=== PATIENT | female | born 1965 | race Caucasian/White ===

== ENCOUNTER 2022-07-17 11:51 | Outpatient (CLI) | payer OTHER, SELFPAY ==
--- NOTE | 2022-07-17 12:00 | CRLHL7_ITS ---
For Patients: As a result of the Century Cures Act, medical imaging exams and procedure reports are released immediately into your electronic medical record. You may view this report before your referring provider. If you have questions, please contact your health care provider. INDICATION: 57-year-old female. Malignant melanoma right lower extremity. Injection for sentinel lymph node scintigraphy. The on-site staff obtained informed consent. Sterile technique was utilized. 0.98 mCi of Tc-99m filtered Sulfur Colloid was injected within an intradermal location posterior to the right knee about the lesion in question. No immediate complications documented. Subsequent imaging demonstrates a chain of multiple small foci of activity within the right inguinal region compatible with multiple lymph nodes. IMPRESSION: Technically successful injection for sentinel lymph node scintigraphy of a malignant melanoma of the right lower extremity. Dictated by Selvin Garcia MD @ 07/17/2022 3:41:20 PM (Electronically Signed)
== END 2022-07-17 11:52 | disposition home or self-care (01) ==
LOC: NM 11:52
PROVIDERS: PCP Family Medicine; Visit Provider Surgery
DX: C43.9 Malignant melanoma of skin, unspecified (principal)
CPT/HCPCS: 78195; A9541

== ENCOUNTER 2022-08-15 10:57 | Outpatient (CLI) | payer OTHER, SELFPAY | END 2022-08-15 10:58 | disposition home or self-care (01) | LOC: WOUND 10:57 | PROVIDERS: PCP Family Medicine; Visit Provider Surgery | DX: T81.31XA Disruption of external operation (surgical) wound, not elsewhere classified, initial encounter (principal); C43.71 Malignant melanoma of right lower limb, including hip | CPT/HCPCS: 99212 ==

== ENCOUNTER 2022-08-18 13:57 | Outpatient (CLI) | payer OTHER, SELFPAY | END 2022-08-18 13:58 | disposition home or self-care (01) | LOC: WOUND 13:57 | PROVIDERS: PCP Family Medicine; Visit Provider Surgery | DX: T81.31XA Disruption of external operation (surgical) wound, not elsewhere classified, initial encounter (principal); C43.71 Malignant melanoma of right lower limb, including hip | CPT/HCPCS: 99212 ==

== ENCOUNTER 2022-08-20 08:11 | Outpatient (CLI) | payer OTHER, SELFPAY | END 2022-08-20 08:12 | disposition home or self-care (01) | LOC: WOUND 08:11 | PROVIDERS: PCP Family Medicine; Visit Provider Surgery | DX: T81.31XA Disruption of external operation (surgical) wound, not elsewhere classified, initial encounter (principal); C43.71 Malignant melanoma of right lower limb, including hip | CPT/HCPCS: 97597 ==

== ENCOUNTER 2022-08-22 09:16 | Outpatient (CLI) | payer OTHER, SELFPAY | END 2022-08-22 09:17 | disposition home or self-care (01) | PROVIDERS: PCP Family Medicine; Visit Provider Surgery | DX: T81.31XA Disruption of external operation (surgical) wound, not elsewhere classified, initial encounter (principal); C43.71 Malignant melanoma of right lower limb, including hip | CPT/HCPCS: 99212 ==

== ENCOUNTER 2022-08-25 08:28 | Outpatient (CLI) | payer OTHER, SELFPAY | END 2022-08-25 08:29 | disposition home or self-care (01) | LOC: WOUND 08:28 | PROVIDERS: PCP Family Medicine; Visit Provider Surgery | DX: T81.31XA Disruption of external operation (surgical) wound, not elsewhere classified, initial encounter (principal); C43.71 Malignant melanoma of right lower limb, including hip | CPT/HCPCS: 99212 ==

== ENCOUNTER 2022-08-26 14:27 | Outpatient (CLI) | payer OTHER, SELFPAY ==
--- NOTE | 2022-08-26 14:40 | CRLHL7_ITS ---
For Patients: As a result of the Century Cures Act, medical imaging exams and procedure reports are released immediately into your electronic medical record. You may view this report before your referring provider. If you have questions, please contact your health care provider. BILATERAL SCREENING MAMMOGRAM WITH COMPUTER-AIDED DETECTION AND TOMOSYNTHESIS TECHNIQUE: CC, MLO and Implant displaced views were obtained. These mammographic images have been obtained using full-field digital technique. These mammographic images were interpreted with the benefit of computer-aided detection. Breast Tomosynthesis was used in this interpretation. COMPARISON FILM: LEFT diag 07/15/21, 07/08/21, 09/27/19. FINDINGS: There are scattered areas of fibroglandular density IMPRESSION: There is no radiographic evidence for malignancy. ASSESSMENT: BI-RADS Category 2: Benign RECOMMENDATION: Routine screening mammogram in 1 year. A lay language report of this examination will be provided to the patient. Vinod Stewart M.D. Diagnostic Radiologist [email or web address] YEYO/Dictated by: Vinod Stewart MD @ 08/27/2022 12:42:00 PM (Electronically Signed)
== END 2022-08-26 14:28 | disposition home or self-care (01) ==
LOC: MAMMO 14:27
PROVIDERS: PCP Family Medicine; Visit Provider Family Medicine
DX: Z12.31 Encounter for screening mammogram for malignant neoplasm of breast (principal)
CPT/HCPCS: 77063; 77067

== ENCOUNTER 2022-08-27 08:51 | Outpatient (CLI) | payer OTHER, SELFPAY | END 2022-08-27 08:52 | disposition home or self-care (01) | LOC: WOUND 08:51 | PROVIDERS: PCP Family Medicine; Visit Provider Surgery | DX: T81.31XA Disruption of external operation (surgical) wound, not elsewhere classified, initial encounter (principal); C43.71 Malignant melanoma of right lower limb, including hip | CPT/HCPCS: 97597 ==

== ENCOUNTER 2022-09-01 09:11 | Outpatient (CLI) | payer OTHER, SELFPAY | END 2022-09-01 09:12 | disposition home or self-care (01) | LOC: WOUND 09:11 | PROVIDERS: PCP Family Medicine; Visit Provider Surgery | DX: T81.31XA Disruption of external operation (surgical) wound, not elsewhere classified, initial encounter (principal); C43.71 Malignant melanoma of right lower limb, including hip | CPT/HCPCS: 99212 ==

== ENCOUNTER 2022-09-04 09:25 | Outpatient (CLI) | payer OTHER, SELFPAY | END 2022-09-04 09:26 | disposition home or self-care (01) | LOC: WOUND 09:25 | PROVIDERS: PCP Family Medicine; Visit Provider Family Medicine | DX: T81.31XA Disruption of external operation (surgical) wound, not elsewhere classified, initial encounter (principal); C43.71 Malignant melanoma of right lower limb, including hip | CPT/HCPCS: 99213 ==

== ENCOUNTER 2022-09-08 08:12 | Outpatient (CLI) | payer OTHER, SELFPAY | END 2022-09-08 08:13 | disposition home or self-care (01) | LOC: WOUND 08:12 | PROVIDERS: PCP Family Medicine; Visit Provider Family Medicine | DX: T81.31XD Disruption of external operation (surgical) wound, not elsewhere classified, subsequent encounter (principal); C43.71 Malignant melanoma of right lower limb, including hip | CPT/HCPCS: 99212 ==

== ENCOUNTER 2022-09-11 07:54 | Outpatient (CLI) | payer OTHER, SELFPAY | END 2022-09-11 07:55 | disposition home or self-care (01) | LOC: WOUND 07:54 | PROVIDERS: PCP Family Medicine; Visit Provider Family Medicine | DX: T81.31XA Disruption of external operation (surgical) wound, not elsewhere classified, initial encounter (principal); C43.71 Malignant melanoma of right lower limb, including hip | CPT/HCPCS: 99212; A9270; J3490 ==

== ENCOUNTER 2022-09-17 07:57 | Outpatient (CLI) | payer OTHER, SELFPAY | END 2022-09-17 07:58 | disposition home or self-care (01) | PROVIDERS: PCP Family Medicine; Visit Provider Surgery | DX: T81.31XA Disruption of external operation (surgical) wound, not elsewhere classified, initial encounter (principal); C43.71 Malignant melanoma of right lower limb, including hip | CPT/HCPCS: 97597 ==

== ENCOUNTER 2022-09-24 08:03 | Outpatient (CLI) | payer OTHER, SELFPAY | END 2022-09-24 08:04 | disposition home or self-care (01) | LOC: WOUND 08:03 | PROVIDERS: PCP Family Medicine; Visit Provider Surgery | DX: T81.31XA Disruption of external operation (surgical) wound, not elsewhere classified, initial encounter (principal); C43.71 Malignant melanoma of right lower limb, including hip | CPT/HCPCS: 99212 ==

== ENCOUNTER 2022-10-08 08:04 | Outpatient (CLI) | payer OTHER, SELFPAY | END 2022-10-08 08:05 | disposition home or self-care (01) | LOC: WOUND 08:04 | PROVIDERS: PCP Family Medicine; Visit Provider Surgery | DX: T81.31XA Disruption of external operation (surgical) wound, not elsewhere classified, initial encounter (principal) | CPT/HCPCS: 99212 ==

== ENCOUNTER 2022-11-21 07:54 | Outpatient (CLI) | payer OTHER, SELFPAY | END 2022-11-21 07:55 | disposition home or self-care (01) | LOC: NFLDREF 11-22 13:03 | PROVIDERS: PCP Family Medicine; Referring Provider Family Medicine; Visit Provider Family Medicine | DX: E03.9 Hypothyroidism, unspecified (principal) | CPT/HCPCS: 84439; 84443; 84481 ==

== ENCOUNTER 2022-12-15 14:01 | Outpatient (CLI) | payer OTHER, SELFPAY ==
--- NOTE | 2022-12-15 14:30 | CRLHL7_ITS ---
For Patients: As a result of the Century Cures Act, medical imaging exams and procedure reports are released immediately into your electronic medical record. You may view this report before your referring provider. If you have questions, please contact your health care provider. INDICATION: Hypothyroidism. TECHNIQUE: Brain MRI with contrast. Pituitary protocol. The following sequences were obtained: DWI and ADC mapping sequences. Axial FLAIR and T2 weighted sequences. Coronal T2 weighted sequence of the sellar region. Coronal and sagittal thin-section T1 weighted pre-contrast and post-contrast sequences of the sellar region. 3D T1 weighted sequence of the whole brain. 10 cc of Dotarem gadolinium based intravenous contrast agent was used. COMPARISON: Brain MRI from 08/25/2022. FINDINGS: The pituitary gland is normal in size and appearance. The neurohypophysis demonstrates normal T1 shortening. Pituitary infundibulum is midline and normal in appearance. The cavernous sinuses and Meckel`s caves are normal in appearance. The suprasellar cistern, hypothalamus and optic chiasm are all normal in appearance. All the major intracranial vascular structures demonstrate normal flow-related signal voids and intraluminal enhancement. Sphenoid sinus demonstrates subsellar pneumatization. No acute infarct or hemorrhage. A few small FLAIR hyperintensities within the supratentorial white matter, typical for chronic microvascular ischemic change. No mass effect or herniation. No hydrocephalus or extra-axial collections. Posterior fossa is normal. All the major intracranial vascular structures demonstrate normal flow-related signal. The orbital contents are normal. No calvarial or skull base marrow signal abnormality. Complete opacification of the right frontal sinus by retention cyst or polyp. Moderate ethmoid air cell mucosal thickening complete opacification of the left-sided posterior ethmoid air cells by pooled secretions. Bilateral sphenoid sinus dependent pooled secretions. Mild polypoid maxillary sinus mucosal thickening. No extracranial soft tissue findings. IMPRESSION: 1. No focal lesion involving the pituitary gland, infundibulum or parasellar structures. 2. No mass or pathologic enhancement elsewhere within the brain. 3. No acute ischemia. 4. Mild chronic microvascular ischemic change. Dictated by Kevin Leger MD @ 12/15/2022 4:00:52 PM (Electronically Signed)
== END 2022-12-15 14:02 | disposition home or self-care (01) ==
LOC: MRI 14:02
PROVIDERS: PCP Family Medicine; Visit Provider Internal Medicine Hematology & Oncology
DX: E03.9 Hypothyroidism, unspecified (principal); I67.82 Cerebral ischemia; C43.9 Malignant melanoma of skin, unspecified
CPT/HCPCS: 70553; A9575

== ENCOUNTER 2022-12-17 13:30 | Outpatient (RCR) | payer OTHER, SELFPAY ==
--- NOTE | 2022-09-09 11:13 | ONC.NURNOTE ---
Optivo Prior auth info: Contact at [facility] is [place] [phone] ext [phone] After 1st dose Optivo will be need to be shipped from [facility] to [facility] Next dose delivery date set for 10/02/22- C#2 Optivo due 10/09/22 [facility] will call the pharmacy at [phone] to confirm delivery date Order for Optivo will need to faxed or called to [facility] fax [phone]
== END 2023-04-16 23:59 | disposition home or self-care (01) ==
PROVIDERS: PCP Family Medicine; Referring Provider Family Medicine; Visit Provider Surgery
DX: R59.0 Localized enlarged lymph nodes (principal); Z51.89 Encounter for other specified aftercare
CPT/HCPCS: 97110; 97140; 97162; 97165; 97530; 97535

== ENCOUNTER 2023-01-08 07:55 | Outpatient (CLI) | payer OTHER, SELFPAY | END 2023-01-08 07:56 | disposition home or self-care (01) | LOC: WOUND 07:55 | PROVIDERS: PCP Family Medicine; Visit Provider Nurse Practitioner Family | DX: L91.0 Hypertrophic scar (principal); Z85.820 Personal history of malignant melanoma of skin | CPT/HCPCS: 99213 ==

== ENCOUNTER 2023-01-29 07:55 | Outpatient (CLI) | payer OTHER, SELFPAY | END 2023-01-29 07:56 | disposition home or self-care (01) | LOC: WOUND 07:55 | PROVIDERS: PCP Family Medicine; Visit Provider Nurse Practitioner Family | DX: L91.0 Hypertrophic scar (principal); Z85.820 Personal history of malignant melanoma of skin | CPT/HCPCS: 99212 ==

== ENCOUNTER 2023-02-04 15:00 | Outpatient (RCR) | payer OTHER, SELFPAY ==
--- NOTE | 2022-09-03 12:57 | URNOTE ---
Request received for authorization for Nivolumab 480mg ([id number]). Prior authorization is approved for 1 dose from 09/03/22 to 10/10/22. A specialty pharmacy is required and [facility] will be contacting prior to expiration of this approval for arrangements for this medication. [facility] contact for concerns can be reached at [phone] if needed.
[2022-09-10 09:21] LABS: Basophils Absolute Auto 0.03 K/uL (0.00-0.30); Basophils Percent Auto 0.6 % (0.0-3.0); Eosinophils Absolute Auto 0.16 K/uL (0.00-0.50); Eosinophils Percent Auto 3.4 % (0.0-7.0); Hematocrit 41.9 % (33.0-51.0); Hemoglobin* 13.7 gm/dL (12.0-16.0); Lymphocytes Absolute Auto 1.74 K/uL (0.90-2.90); Lymphocytes Percent Auto 36.7 % (20-44); Mean Corpuscular HGB Conc 33 gm/dL (32-36); Mean Corpuscular Hemoglobin 31 pg (26-34); Mean Corpuscular Volume 96 fL (80-100); Monocytes Percent Auto 8.2 % (0.0-11.0); Neutrophils Absolute Auto 2.42 K/uL (1.7-7.0); Neutrophils Percent Auto 51.1 % (42.0-72.0); Platelet Count* 115 K/uL (140-440); RDW Coefficient of Variation % 12.5 % (11.5-15.5); Red Blood Count 4.38 m/uL (4.00-5.20); White Blood Count* 4.74 K/uL (4.50-11.00)
[2022-09-10 09:30] LABS: Slide Review Reflex No
[2022-09-10 10:19] LABS: Thyroid Stimulating Hormone* 0.339 uIU/mL (0.270-4.20)
[2022-09-10 10:42] LABS: Sodium* 138 mmol/L (135-149)
[2022-09-10 10:43] LABS: Alanine Aminotransferase* 20 U/L (4-35); Albumin* 4.4 g/dL (3.3-5.0); Aspartate Amino Transferase* 27 U/L (12-35); Bilirubin Total* 0.4 mg/dL (0.1-1.5); Blood Urea Nitrogen* 16 mg/dL (7-30); Calcium* 9.2 mg/dL (8.4-10.6); Carbon Dioxide* 27 mmol/L (20-32); Chloride* 104 mmol/L (96-114); Creatinine* 0.7 mg/dL (0.5-1.5); Estimated Glomerular Filt Rate 100 ml/min; Glucose* 97 mg/dL (60-115); Potassium* 4.1 mmol/L (3.6-5.1); Total Protein* 7.3 g/dL (6.0-8.3)
[2022-09-10 10:44] LABS: Alkaline Phosphatase* 65 U/L (40-150)
--- NOTE | 2022-09-10 11:35 | ONC.NURNOTE ---
PSDS +8 patient expresses concerns about the potential for immunotherapy toxicities and if immunotherapy risks will be worth the benefits Kelly Wiggins and this internal communications writer > 1 hr discussing concerns and written information about optivo possible side effects and management
--- NOTE | 2022-09-10 11:39 | ONC.NURNOTE ---
New start Optivo teaching today reviewed reportable side effects, after hours management, self care at home, treatment schedule reviewed new treatment binder handouts questions addressed -Padma has expressed concerns about risks associated with intermission coordinator implications of immunotherapy especially pneumonitis handouts provided , per Padma's request with the frequency of pneumonitis, skin rash, diarrhea, thyroid changes- reviewed with patient -Padma questions-what is the expected outcome if she does not take the immunotherapy- this is not known, goal of treatment reviewed with Padma -Padma requested to move treatment start date to next week -follow up provider appt offered prior to start of treatment- Padma will let us know if she decides to see provider again -plan to start thursday09/15/22 SATISH and treatment consents reviewed and signed Kelly Wiggins APRN/BONE GRINDER- was present for a portion of today's conversation addressing possible side effects and treatment goals greater than 1 hour spent addressing questions and reviewing above information
[2022-09-11 18:03] LABS: Cortisol, Serum 15.4 ug/dL
[2022-09-17 14:20] VITALS: BP 129/77; PULSE 62; RESP 18; TEMP 37.1; O2SAT 99
[2022-09-17] MEDS: NIVOLUMAB 480 MG, TUBING PRIMARY 1 EACH, In-line 0.2 micron filter set 1 EACH in 0.9 % ... 148 MG IVPB (15:04)
--- NOTE | 2022-09-19 09:02 | PC.NURSE ---
Pt requested AM doctor appt and PM infusion with her next cycle to accommodate her work schedule.
[2022-10-10 07:57] LABS: Basophils Absolute Auto 0.05 K/uL (0.00-0.30); Eosinophils Absolute Auto 0.28 K/uL (0.00-0.50); Eosinophils Percent Auto 5.6 % (0.0-7.0); Hematocrit 42.6 % (33.0-51.0); Hemoglobin* 13.9 gm/dL (12.0-16.0); Immature Granulocytes Abs Auto 0.01 K/uL (0.00-0.30); Immature Granulocytes Pct Auto 0.2 %; Lymphocytes Absolute Auto 1.63 K/uL (0.90-2.90); Lymphocytes Percent Auto 32.5 % (20-44); Mean Corpuscular HGB Conc 33 gm/dL (32-36); Mean Corpuscular Hemoglobin 31 pg (26-34); Mean Corpuscular Volume 96 fL (80-100); Monocytes Percent Auto 8.2 % (0.0-11.0); Neutrophils Absolute Auto 2.63 K/uL (1.7-7.0); Neutrophils Percent Auto 52.5 % (42.0-72.0); Platelet Count* 84 K/uL (140-440); RDW Coefficient of Variation % 12.8 % (11.5-15.5); Red Blood Count 4.42 m/uL (4.00-5.20); White Blood Count* 5.01 K/uL (4.50-11.00)
[2022-10-10 08:10] LABS: Albumin* 4.4 g/dL (3.3-5.0); Chloride* 103 mmol/L (96-114); Sodium* 136 mmol/L (135-149)
[2022-10-10 08:11] LABS: Potassium* 4.4 mmol/L (3.6-5.1)
[2022-10-10 08:13] LABS: Alanine Aminotransferase* 20 U/L (4-35); Alkaline Phosphatase* 56 U/L (40-150); Aspartate Amino Transferase* 26 U/L (12-35); Bilirubin Total* 0.6 mg/dL (0.1-1.5); Blood Urea Nitrogen* 19 mg/dL (7-30); Carbon Dioxide* 29 mmol/L (20-32); Creatinine* 0.9 mg/dL (0.5-1.5); Estimated Glomerular Filt Rate 74 ml/min; Glucose* 135 mg/dL (60-115); Slide Review Reflex No; Total Protein* 7.2 g/dL (6.0-8.3)
[2022-10-10 08:14] LABS: Calcium* 9.3 mg/dL (8.4-10.6)
[2022-10-10 09:05] LABS: Thyroid Stimulating Hormone* < 0.015 uIU/mL (0.270-4.20)
[2022-10-11 12:13] LABS: Cortisol, Serum 12.7 ug/dL
[2022-10-14 12:55] VITALS: BP 117/59; PULSE 73; RESP 16; TEMP 36.7; O2SAT 97
[2022-10-14] MEDS: NIVOLUMAB 480 MG, TUBING PRIMARY 1 EACH, In-line 0.2 micron filter set 1 EACH in 0.9 % ... 148 MG IV (13:11)
[2022-10-14] MEDS: 0.9 % SODIUM CHLORIDE 250 ml IV (13:12)
[2022-10-14] MEDS: SODIUM CHLORIDE 0.9 % (FLUSH) 10 ML SYRINGE IVF (13:12)
[2022-10-24 08:14] LABS: Basophils Absolute Auto 0.08 K/uL (0.00-0.30); Basophils Percent Auto 1.8 % (0.0-3.0); Eosinophils Absolute Auto 0.29 K/uL (0.00-0.50); Eosinophils Percent Auto 6.4 % (0.0-7.0); Hematocrit 41.7 % (33.0-51.0); Hemoglobin* 13.5 gm/dL (12.0-16.0); Immature Granulocytes Abs Auto 0.01 K/uL (0.00-0.30); Immature Granulocytes Pct Auto 0.2 %; Lymphocytes Absolute Auto 1.39 K/uL (0.90-2.90); Lymphocytes Percent Auto 30.6 % (20-44); Mean Corpuscular HGB Conc 32 gm/dL (32-36); Mean Corpuscular Hemoglobin 32 pg (26-34); Mean Corpuscular Volume 97 fL (80-100); Monocytes Percent Auto 7.9 % (0.0-11.0); Neutrophils Absolute Auto 2.41 K/uL (1.7-7.0); Neutrophils Percent Auto 53.1 % (42.0-72.0); Platelet Count* 101 K/uL (140-440); RDW Coefficient of Variation % 12.6 % (11.5-15.5); Red Blood Count 4.29 m/uL (4.00-5.20); White Blood Count* 4.54 K/uL (4.50-11.00)
[2022-10-24 08:19] LABS: Slide Review Reflex No
[2022-10-24 08:50] LABS: Free T4 Free Thyroxine* 0.88 ng/dL (0.70-1.85)
[2022-10-25 13:55] LABS: Free T3 3.2 pg/mL (2.5-4.3)
[2022-11-11 08:17] LABS: Basophils Percent Auto 1.9 % (0.0-3.0); Eosinophils Percent Auto 4.4 % (0.0-7.0); Hematocrit 42.6 % (33.0-51.0); Hemoglobin* 13.7 gm/dL (12.0-16.0); Lymphocytes Percent Auto 36.7 % (20-44); Mean Corpuscular HGB Conc 32 gm/dL (32-36); Mean Corpuscular Hemoglobin 31 pg (26-34); Mean Corpuscular Volume 97 fL (80-100); Monocytes Percent Auto 7.9 % (0.0-11.0); Neutrophils Percent Auto 49.1 % (42.0-72.0); Platelet Count* 106 K/uL (140-440); RDW Coefficient of Variation % 12.2 % (11.5-15.5); Red Blood Count 4.39 m/uL (4.00-5.20); White Blood Count* 4.28 K/uL (4.50-11.00)
[2022-11-11 08:23] LABS: Slide Review Reflex No
[2022-11-11 08:39] LABS: Albumin* 4.4 g/dL (3.3-5.0); Chloride* 103 mmol/L (96-114); Sodium* 137 mmol/L (135-149)
[2022-11-11 08:41] LABS: Bilirubin Total* 0.5 mg/dL (0.1-1.5); Creatinine* 0.9 mg/dL (0.5-1.5); Est. Creatinine Clearance* 56.63; Estimated Glomerular Filt Rate 74 ml/min
[2022-11-11 08:42] LABS: Alanine Aminotransferase* 21 U/L (4-35); Alkaline Phosphatase* 66 U/L (40-150); Anion Gap 8 mEq/L (7-15); Aspartate Amino Transferase* 27 U/L (12-35); Blood Urea Nitrogen* 22 mg/dL (7-30); Calcium* 9.2 mg/dL (8.4-10.6); Carbon Dioxide* 26 mmol/L (20-32); Glucose* 68 mg/dL (60-115); Total Protein* 7.3 g/dL (6.0-8.3)
[2022-11-11 09:34] LABS: Thyroid Stimulating Hormone* 0.043 uIU/mL (0.270-4.20)
[2022-11-11 15:01] VITALS: BP 108/57; PULSE 66; RESP 16; TEMP 36.5; O2SAT 97
[2022-11-11] MEDS: NIVOLUMAB 480 MG, TUBING PRIMARY 1 EACH, In-line 0.2 micron filter set 1 EACH in 0.9 % ... 296 MG IV (15:43)
--- NOTE | 2022-11-11 18:21 | ONC.NURNOTE ---
Pt had Opdivo infusion today. She notes that over the last few months or so, she has some vision changes with up close things. She describes it as having to blink twice to focus more clearly and that using cheaters glasses helps. She has scheduled at f/u with her eye dr 12/08/22, saying she hasn't been seen there in 2 years. She describes the vision changes as in general and not worse in one eye. Reviewed with Kelly Zuñiga APRN; when reviewing Opdivo resources, uvitis has been found in <1% of patients. Reviewed with pt and recommended if any significant changes before appt that she be seen sooner. She is agreeable to this plan.
[2022-11-13 00:24] LABS: Cortisol, Serum 14.6 ug/dL
[2022-12-10 08:02] LABS: Basophils Absolute Auto 0.11 K/uL (0.00-0.30); Basophils Percent Auto 2.2 % (0.0-3.0); Eosinophils Absolute Auto 0.32 K/uL (0.00-0.50); Eosinophils Percent Auto 6.3 % (0.0-7.0); Hematocrit 41.8 % (33.0-51.0); Hemoglobin* 13.7 gm/dL (12.0-16.0); Lymphocytes Percent Auto 31.4 % (20-44); Mean Corpuscular HGB Conc 33 gm/dL (32-36); Mean Corpuscular Hemoglobin 31 pg (26-34); Mean Corpuscular Volume 96 fL (80-100); Monocytes Percent Auto 8.4 % (0.0-11.0); Neutrophils Absolute Auto 2.63 K/uL (1.7-7.0); Neutrophils Percent Auto 51.7 % (42.0-72.0); Platelet Count* 86 K/uL (140-440); RDW Coefficient of Variation % 11.9 % (11.5-15.5); Red Blood Count 4.36 m/uL (4.00-5.20); White Blood Count* 5.09 K/uL (4.50-11.00)
[2022-12-10 08:08] LABS: Slide Review Reflex No
[2022-12-10 08:17] LABS: Albumin* 4.1 g/dL (3.3-5.0); Chloride* 104 mmol/L (96-114)
[2022-12-10 08:18] LABS: Potassium* 4.3 mmol/L (3.6-5.1); Sodium* 139 mmol/L (135-149)
[2022-12-10 08:20] LABS: Anion Gap 8 mEq/L (7-15); Bilirubin Total* 0.4 mg/dL (0.1-1.5); Carbon Dioxide* 27 mmol/L (20-32); Creatinine* 0.9 mg/dL (0.5-1.5); Est. Creatinine Clearance* 57.16; Estimated Glomerular Filt Rate 74 ml/min
[2022-12-10 08:21] LABS: Alanine Aminotransferase* 24 U/L (4-35); Alkaline Phosphatase* 79 U/L (40-150); Aspartate Amino Transferase* 31 U/L (12-35); Blood Urea Nitrogen* 31 mg/dL (7-30); Calcium* 9.6 mg/dL (8.4-10.6); Glucose* 56 mg/dL (60-115); Total Protein* 7.2 g/dL (6.0-8.3)
[2022-12-10 09:21] LABS: Thyroid Stimulating Hormone* < 0.015 uIU/mL (0.270-4.20)
[2022-12-13 10:51] LABS: Cortisol, Serum 11.7 ug/dL
[2022-12-29 10:02] LABS: Free T4 Free Thyroxine* 1.23 ng/dL (0.70-1.85)
[2022-12-29 10:18] LABS: Thyroid Stimulating Hormone* < 0.015 uIU/mL (0.270-4.20)
[2022-12-30 22:02] LABS: Free T3 2.3 pg/mL (2.5-4.3)
--- NOTE | 2023-02-18 13:13 | ONC.NURNOTE ---
New RX Mekinist and Trafinlar are being held at [facility] there is a $0 Copay for both medications [place] was approved Message was left on Padma's with update Patient is out of town on vacation until later in February, RTC 03/17/23
== END 2023-02-28 23:59 | disposition home or self-care (01) ==
LOC: CCIC 15:00
PROVIDERS: PCP Family Medicine; Referring Provider Family Medicine; Visit Provider Internal Medicine Hematology & Oncology
DX: C43.71 Malignant melanoma of right lower limb, including hip (principal); E03.9 Hypothyroidism, unspecified; Z98.890 Other specified postprocedural states
CPT/HCPCS: 36415; 36591; 80053; 81445; 82024; 82533; 84439; 84443; 84481; 85025; 96413; 99202; 99204; 99205; 99211; 99212; 99213; 99214; 99215; J7050; J9299

== ENCOUNTER 2023-03-05 13:45 | Outpatient (CLI) | payer OTHER, SELFPAY ==
--- NOTE | 2023-03-05 15:30 | PE_ITS ---
[facility] [address] [address] Phone:?[phone] Fax:?[phone] Referring Physician Information: Glo Wells M.D. [address] [address] Phone:?[phone] Fax:?[phone] Patient:Madalyn Hurtado D.O.B:?1965 Sex:?Female Phone:?[phone] [facility] MRN:?[id number] Exam Date:?03/05/2023 EXAM: PET/CT EYES TO THIGHS, CANCER RESTAGING Addendum A ADDENDUM: The corrected exam title is as follows. This is a technical addendum only, provided for documentation and coding purposes. There are no changes to the interpretation of the exam. PROCEDURE: PET WHOLE BODY CANCER RESTAGING CLINICAL INFORMATION: Melanoma, restaging. TECHNICAL INFORMATION: Helical acquisition of data was obtained from the vertex to the toes with reconstruction of 3.75 mm thick images at 3.[address] data was used for attenuation correction. PET scanning was performed through the same anatomic range 60 minutes following administration of 12.96 mCi of 18-FDG delivered intravenously. The patient's glucose at the time of the injection was 92 mg/dL. PET, CT and PET/CT fusion images are interpreted using a computer viewing workstation. PET, CT and PET/CT fusion images were archived and saved in the patient's permanent medical record. COMPARISON: PET-CT from 08/29/2022. INTERPRETATION: Head and Neck: There are no abnormal hypermetabolic foci within the head or neck. There is physiologic uptake in the intracranial soft tissues. Chest: There are no abnormal hypermetabolic foci within the chest. Background mediastinal blood pool uptake has a maximum SUV of 2.37. No lung nodules or masses detected on this free-breathing exam. No lymphadenopathy detected. Abdomen and Pelvis: There are no abnormal hypermetabolic foci within the abdomen or pelvis. Background hepatic parenchymal uptake has a maximum SUV of 3.12. There is physiologic excretion of radiotracer in the urine and bowel. Surgical clips noted in right groin. Skeleton, Musculature, and Integument: No abnormal hypermetabolic foci within the skeleton. No meño osteoblastic or osteolytic disease. CONCLUSION: No abnormal FDG uptake to indicate hypermetabolic malignancy. Electronically signed on 03/10/2023 8:43:00 AM by Bob Basilio M.D.
== END 2023-03-05 13:46 | disposition home or self-care (01) ==
LOC: RAD 13:46
PROVIDERS: PCP Family Medicine; Visit Provider Internal Medicine Hematology & Oncology
DX: C43.9 Malignant melanoma of skin, unspecified (principal)
CPT/HCPCS: 78816; A9552

== ENCOUNTER 2023-03-11 07:00 | Outpatient (CLI) | payer OTHER, SELFPAY ==
--- NOTE | 2023-03-11 07:15 | CRLHL7_ITS ---
For Patients: As a result of the 21st Century Cures Act, medical imaging exams and procedure reports are released immediately into your electronic medical record. You may view this report before your referring provider. If you have questions, please contact your health care provider. Indication: BASAL CELL CARCINOMA OF SKIN Technique: Noncontrast sagittal T1, axial FLAIR, T2 turbo spine echo, SWI, and diffusion weighted images. Supplemental post contrast T1 weighted axial and coronal sequences are provided after administration of 15 mL gadolinium-based IV contrast. Comparison: MRI 12/15/2022 Findings: The ventricles, sulci and gyri are normal size, shape and contour for age. Mild scattered foci of T2 prolongation in the cerebral white matter are nonspecific. The midline structures are centrally located with no evidence of shift. There are no suspicious intra or extra-axial fluid collections. The pituitary and uptake has an are unremarkable. The cerebellar tonsils are normal in position. No evidence of restricted diffusion to suggest acute ischemia. Expected flow voids in the cavernous carotids and basilar artery. No abnormal contrast enhancement involving the brain parenchyma, meninges, calvarium or skull base. Polypoid mucosal thickening in the sphenoid sinuses, left ethmoid air cells and right frontal sinus. Moderate mucosal thickening in the left maxillary sinus and mild mucosal thickening in the right maxillary sinus. The mastoid air cells are clear. Leftward deviation of the nasal septum. Impression: 1. No acute intracranial abnormality. 2. Few punctate scattered foci of T2 prolongation in the cerebral white matter are nonspecific. Differential considerations include sequela of migraine headaches, prior inflammation, and minimal chronic small vessel disease. 3. Moderate polypoid mucosal thickening in the right frontal sinus, left ethmoid air cells and sphenoid sinuses. Dictated by Vinod Vasquez MD @ 03/11/2023 11:28:00 AM (Electronically Signed)
== END 2023-03-11 07:01 | disposition home or self-care (01) ==
LOC: MRI 07:01
PROVIDERS: PCP Family Medicine; Visit Provider Internal Medicine Hematology & Oncology
DX: C43.9 Malignant melanoma of skin, unspecified (principal); I67.82 Cerebral ischemia; C44.91 Basal cell carcinoma of skin, unspecified; J32.3 Chronic sphenoidal sinusitis
CPT/HCPCS: 70553; A9575

== ENCOUNTER 2023-03-20 06:47 | Emergency (ER) | payer OTHER, SELFPAY ==
[2023-03-20 07:11] VITALS: BP 149/84; PULSE 55; RESP 14; TEMP 36.5; O2SAT 98; BMI 19.4
--- NOTE | 2023-03-20 07:39 | CRLHL7_ITS ---
For Patients: As a result of the Century Cures Act, medical imaging exams and procedure reports are released immediately into your electronic medical record. You may view this report before your referring provider. If you have questions, please contact your health care provider. INDICATION: Headache and thrombocytopenia. History of melanoma and basal cell carcinoma. TECHNIQUE: CT head without contrast. COMPARISON: MRI brain 03/11/2023 FINDINGS: CSF spaces: Within normal limits for age. Brain parenchyma: The arevalo-white differentiation is normal. No sign of mass, hemorrhage, or midline shift. Mild cerebral atrophy. Skull base and calvarium: Mucosal thickening and patchy opacification the paranasal sinuses. The visualized orbits are grossly unremarkable. No skull fractures. IMPRESSION: 1. No intracranial bleed or mass effect. 2. Diffuse sinus disease. In the correct clinical setting this can be seen in acute sinusitis. 3. Mild cerebral atrophy. Please note that all CT scans at this facility use dose modulation, iterative reconstruction, and/or weight-based dosing when appropriate to reduce radiation dose to as low as reasonably achievable. Dictated by Matias Car MD @ 03/20/2023 8:13:36 AM (Electronically Signed)
--- NOTE | 2023-03-20 07:40 | ED_ITS ---
HPI - General Adult General Chief complaint: Headache/Migraine Stated complaint: headache Time Seen by Provider: 03/20/23 07:25 Source: patient Mode of arrival: ambulatory Limitations: no limitations History of Present Illness HPI narrative: 57-year-old patient presents the emergency department because she was already at the hospital having repeat blood work drawn and thought she should be evaluated while she was here for a 4 day headache. Reports that the headache started in the maxillary sinus area and radiates up to the temples and also the posterior neck. There was no trauma or injury. She is not on blood thinners. She unfortunately does have a platelet count of 25 for reasons that seem related to chemotherapy and bone marrow failure per her description though she is not completely sure as to why. She states that the headache has been gradually worse over the past 4 days but she has not tried any medication for it. Headache is bilateral and is not accompanied by vision changes, neurological changes or weakness. Headache radiates down the posterior neck. No difficulty moving the extremities. No nausea or vomiting. No dizziness or balance and gait issues. Thinks that she could possibly have a sinus infection. Has not had any viral swab testing. No fever. There is no neck stiffness, just posterior muscular tenderness. Did try a little bit of mentally to muscle rub with no significant improvement. Past medical history notable for hypothyroidism, prior melanoma. Reports that she had an MRI a week and half ago but her headache has started after that. Medications reviewed, noted is accurate. Allergy list reviewed as well. No pertinent travel. ROS is notable for the HEENT, generalized and had symptoms as described above. Otherwise denies times 12 systems. Related Data Home Medications Medication Instructions Recorded Confirmed apple cider vinegar 500 mg tablet 500 mg PO DAILY 07/24/22 03/20/23 cholecalciferol (vitamin D3) 125 5,000 unit PO DAILY 07/24/22 03/20/23 mcg (5,000 unit) tablet collagen (bovine) 100 % topical 1 applic topical QDAY 07/24/22 03/20/23 powder melatonin 5 mg capsule 5 mg PO QHS PRN 07/24/22 03/20/23 multivitamin 1 tab PO QDAY 07/24/22 03/20/23 Previous Rx's Medication Instructions Recorded dabrafenib 75 mg capsule 150 mg (2 x 75 mg) PO Q12H #120 02/04/23 caps trametinib 2 mg tablet 2 mg PO Q24H #30 tabs 02/04/23 nirmatrelvir 300 mg (150 mg See Rx Instructions PO .COMPLEX 03/20/23 x2)-ritonavir 100 mg tablet,dose #30 ea pack (Paxlovid) Allergies Allergy/AdvReac Type Severity Reaction Status Date / Time tramadol AdvReac Unknown Dizziness Verified 03/20/23 07:11 PFSH [facility] Medical History Malignant melanoma ?C43.9 - Malignant melanoma of skin, unspecified (ICD-10) Surgical History H/O local excision of skin lesion ?Z98.890 - Other specified postprocedural states (ICD-10) History of section ?Z98.891 - History of uterine scar from previous surgery (ICD-10) History of breast augmentation ?Z98.82 - Breast implant status (ICD-10) Social History Narrative: 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 She denies drinking alcohol and smoking. Smoking Status: Never smoker Do you use any of these nicotine containing products: None Second hand tobacco smoke exposure: No How often do you have a drink containing alcohol: never AUDIT-C Alcohol total score: 0 Non-prescribed substance use: denies use Little interest or pleasure in doing things: not at all Feeling down, depressed, or hopeless: not at all Exam Const: Vital Signs, click to edit/add: Vital Signs - 24 hr 03/20/23 07:11 Temperature 97.7 F Pulse Rate [Pulse Oximeter] 55 L Respiratory Rate 14 Blood Pressure [Ri ght Upper Arm] 149/84 H Pulse Oximetry 98 Oxygen Delivery Me thod Room Air Documenting provider has reviewed patient's vital signs: yes Common no rmals: no apparent distress and alert General appearance: well kempt HENMT: Common normals: normocephalic and head/scalp atraumatic Head and scalp: normocephalic and atraumatic Face and sinus: normal facial exam Other: TMs are normal bilaterally but there is a little bit of blood in her left ear canal. The nose has some mild clear mucus rhinorrhea and postnasal drip. Oropharynx has a little bit of petechiae on the top palate but no enlargement of the tonsils or exudate. Good dentition. Lips are acyanotic. Eye: Common normals: PERRL, EOMs intact bilaterally and conjunctivae normal Conjunctiva: conjunctiva(e) normal Pupil: PERRL Neck & C-Spine: Common normals: no meningeal signs Other: Neck has normal range of motion with no meningeal signs. There is tenderness to the paraspinal muscles of the cervical spine, does report midline point bony tenderness C5 and 6 as well. No step-offs or obvious deformity. Resp: Common normals: normal respiratory effort, no use of accessory muscles and clear to auscultation bilaterally Effort & inspection: able to speak in complete sentences Auscultation: clear to auscultation bilaterally Cardio: Common normals: regular rate, regular rhythm, S1 normal heart sound, S2 normal heart sound and no murmurs Rate: regular rate Rhythm: regular rhythm Heart sounds: S1 normal and S2 normal Extremity: Common normals: normal to inspection, full ROM and no pedal edema Neuro: Common normals: CN's II-XII intact bilaterally Sensorium/orientation: alert Meningeal signs: no meningeal signs Speech: speech normal Motor exam: strength 5/5 throughout and no movement abnormalities noted Psych: Appearance: well kempt Attitude: engaged Insight: insight good Judgement: judgment good Skin: Common normals: no rashes or lesions noted General skin exam: no rashes or lesions noted Course Course ED Course: Severe thrombocytopenia with new onset headache worrisome for possible intracranial hemorrhage. I more suspicious that this is likely a viral upper respiratory and sinus infection but with her history and progression of symptoms and her obvious concern, I recommend a head CT to look for hemorrhage. Patient was agreeable to this. She says that she has already had her blood drawn, I will wait and review the CBC on this as well. Will give her 1000 mg of Tylenol for pain and I have also recommended a viral swab. She was agreeable to this plan. Will be handing over care to my in coming day shift partner. Reevaluation(s) Time of Reevaluation #1: 08:35 Reevaluation #1: Swab positive for COVID. Discussed with patient. Suspect this is the etiology of her body aches. She is interested in Paxlovid. Discussed Tylenol for pain control. She will have her labs drawn outpatient following her discharge from the ED. oncology follow-up per their recommendations. Discussed 5 days of quarantine, mask. Alarm symptoms reviewed that would warrant ED presentation. All questions answered. Vital Signs Vital signs: Initial Vital Signs Temperature 97.7 F 03/20/23 07:11 Temperature Source Temporal Artery Scan 03/20/23 07:11 Pulse Rate 55 L 03/20/23 07:11 Respiratory Rate 14 03/20/23 07:11 Blood Pressure 149/84 H 03/20/23 07:11 Blood Pressure Mean 105 03/20/23 07:11 Blood Pressure Position Sitting 03/20/23 07:11 Pulse Oximetry 98 03/20/23 07:11 Oxygen Delivery Method Room Air 03/20/23 07:11 Vital Signs Temperature 97.7 F 03/20/23 07:11 Pulse Rate 55 L 03/20/23 07:11 Respiratory Rate 14 03/20/23 07:11 Blood Pressure 149/84 H 03/20/23 07:11 Pulse Oximetry 98 03/20/23 07:11 Oxygen Delivery Method Room Air 03/20/23 07:11 Temperature 97.7 F 03/20/23 07:11 Pulse Rate 55 L 03/20/23 07:11 Respiratory Rate 14 03/20/23 07:11 Blood Pressure 149/84 H 03/20/23 07:11 Pulse Oximetry 98 03/20/23 07:11 Oxygen Delivery Method Room Air 03/20/23 07:11 Medical Decision Making Lab Data Lab results reviewed: Yes I reviewed the patient's lab results Lab results narrative: COVID positive. Discussed Labs: Lab Results 03/20/23 Range/Units 07:45 SARS-CoV-2 (PCR) POSITIVE SARS-CoV-2 A (Negative) Influenza Type A (PCR) Negative PCR FLU A (Negative) Influenza Type B (PCR) Negative PCR FLU B (Negative) RSV (PCR) Negative PCR RSV (Negative) Imaging Data CT scan - head: Attestation: I have reviewed the pertinent imaging results. My impression: No intracranial hemorrhage, mass effect or signs of severe infection. Radiologist's impression: IMPRESSION: 1. No intracranial bleed or mass effect. 2. Diffuse sinus disease. In the correct clinical setting this can be seen in acute sinusitis. 3. Mild cerebral atrophy. Discharge Plan Discharge Clinical Impression: COVID, Acute viral sinusitis, Thrombocytopenia Patient Disposition: Home, Self-Care Condition: Stable Instructions: Sinusitis (ED), COVID-19 (Coronavirus Disease 2019) (ED) Additional Instructions: Your headache and facial pressure seem to be from a viral sinus infection caused by COVID-19. There are no signs of bleeding within the brain on CT, this is good news. It is okay to use Tylenol 1000 mg up to every 6 hours for pain control. I would prefer that you avoid ibuprofen until your platelets improved. Keep your blood drawn and pending appointments with the flash welding machine operator regarding your low platelets. I also recommend that you start Paxlovid, the antiviral medication that can help shorten the duration and intensity of your COVID. If you have worsening neurological changes, come back to the emergency department. Activity Level: No Restrictions Discharge Diet: Regular Prescriptions: New Paxlovid 300 mg (150 mg x 2)-100 mg tablets,dose pack See Rx Instructions .ROUTE .COMPLEX Qty: 30 0RF Rx Instructions: take TWO 150 mg tablets of nirmatrelvir with ONE 100 mg tablet of ritonavir twice daily for 5 days No Action dabrafenib 75 mg capsule 150 mg PO Q12H Qty: 120 0RF trametinib 2 mg tablet 2 mg PO Q24H Qty: 30 0RF Rx Instructions: must be taken on empty stomach, at least 1 hr before or 2-3 hrs after meal/food multivitamin Tablet 1 tab PO QDAY cholecalciferol (vitamin D3) 125 mcg (5,000 unit) tablet 5,000 unit PO DAILY apple cider vinegar 500 mg tablet 500 mg PO DAILY melatonin 5 mg capsule 5 mg PO QHS PRN collagen (bovine) 100 % powder 1 applic topical QDAY Follow Up/Referrals: Bobby Hightower MD [Primary Care Provider] - Stand Alone Forms: [employer] Info Instructions
[2023-03-20 08:29] LABS: PCR FLU A Negative PCR FLU A (Negative); PCR FLU B Negative PCR FLU B (Negative); PCR RSV Negative PCR RSV (Negative); SARS PCR* POSITIVE SARS-CoV-2 (Negative)
[2023-03-20 09:00] VITALS: PULSE 59; RESP 14; O2SAT 98
--- NOTE | 2023-03-23 11:37 | ED.NURSE ---
patient had called back and requesting an antibiotic is concerned no improvement and has a lot of pressure in nasal area and back of the neck. Dr. Shields agreed to order Augmentin 875mg BID 10 days and sent into [facility] electronically. Called back to the patient to informed of the order to pick up operator at pharmacy [facility] in [place].
== END 2023-03-20 09:02 | disposition home or self-care (01) ==
PROVIDERS: Emergency Provider Family Medicine; PCP Family Medicine
DX: U07.1 COVID-19 (principal); D69.6 Thrombocytopenia, unspecified
CPT/HCPCS: 70450; 87631; 99284

== ENCOUNTER 2023-04-15 13:30 | Outpatient (RCR) | payer OTHER, SELFPAY ==
[2023-03-18 15:47] LABS: Basophils Absolute Auto 0.03 K/uL (0.00-0.30); Basophils Percent Auto 0.6 % (0.0-3.0); Eosinophils Absolute Auto 0.23 K/uL (0.00-0.50); Eosinophils Percent Auto 4.4 % (0.0-7.0); Hematocrit 41.7 % (33.0-51.0); Hemoglobin* 13.6 gm/dL (12.0-16.0); Immature Granulocytes Abs Auto 0.01 K/uL (0.00-0.30); Immature Granulocytes Pct Auto 0.2 %; Lymphocytes Absolute Auto 2.16 K/uL (0.90-2.90); Lymphocytes Percent Auto 41.2 % (20-44); Mean Corpuscular HGB Conc 33 gm/dL (32-36); Mean Corpuscular Hemoglobin 31 pg (26-34); Mean Corpuscular Volume 94 fL (80-100); Monocytes Percent Auto 8.6 % (0.0-11.0); Neutrophils Absolute Auto 2.36 K/uL (1.7-7.0); RDW Coefficient of Variation % 12.3 % (11.5-15.5); Red Blood Count 4.45 m/uL (4.00-5.20); White Blood Count* 5.24 K/uL (4.50-11.00)
--- NOTE | 2023-03-18 15:51 | ONC.NURNOTE ---
Handouts given on Mekinist and Tafinlar- discussed dosing, schedule, possible side effects,safe handling and disposal, calling with side effects, lab schedule, ECHO ordered to be done before starting treatment- Unable to get in at [place] for 3 weeks- will need to look at [facility] and follow up appts pending start date
[2023-03-18 16:04] LABS: Albumin* 4.8 g/dL (3.3-5.0); Chloride* 102 mmol/L (96-114); Potassium* 4.3 mmol/L (3.6-5.1); Sodium* 138 mmol/L (135-149)
[2023-03-18 16:06] LABS: Bilirubin Total* 0.4 mg/dL (0.1-1.5); Creatinine* 0.8 mg/dL (0.5-1.5); Estimated Glomerular Filt Rate 85 ml/min
[2023-03-18 16:07] LABS: Alanine Aminotransferase* 23 U/L (4-35); Alkaline Phosphatase* 73 U/L (40-150); Anion Gap 5 mEq/L (7-15); Aspartate Amino Transferase* 33 U/L (12-35); Blood Urea Nitrogen* 16 mg/dL (7-30); Calcium* 9.9 mg/dL (8.4-10.6); Carbon Dioxide* 31 mmol/L (20-32); Glucose* 87 mg/dL (60-115); Lactate Dehydrogenase* 229 U/L (120-246); Total Protein* 7.8 g/dL (6.0-8.3)
[2023-03-18 16:12] LABS: Platelet Count* 20 K/uL (140-440)
[2023-03-18 16:13] LABS: Slide Review Reflex Yes
--- NOTE | 2023-03-19 07:58 | ONC.NURNOTE ---
Patient notified on 03/18/2023 at 1645 of platelets being very low at 20,000 and problems to be aware of related to low platelets ie: if bleeding occurs and bleeding not stopping-does admit to bruising easy and having bloody nose yesterday but it stopped. Will need to get patient into clinic per Dr. allan for work up
--- NOTE | 2023-03-19 15:40 | ONC.NURNOTE ---
Called pt today to update her on scheduling echo. Stave Block Splitter able to get her scheduled for echo at [place] on 03/31/22, however, pt would like to keep her echo appt on 04/08/23 at the [facility].
[2023-03-20 09:11] LABS: Platelet Count* 57 K/uL (140-440)
[2023-03-20 10:17] LABS: HIV 1/2/P24 Combo Screen* Negative (Negative)
[2023-03-20 10:50] LABS: Vitamin B12* > 1000 pg/mL (243-894)
[2023-03-21 20:06] LABS: Hep A Ab, IgM Negative (Negative); Hep B Core Ab, IgM Negative (Negative); Hep B Surface Antigen Negative (Negative); Hep C Ab by CIA Index 0.08 IV; Hep C Ab by CIA Interp Negative (Negative)
[2023-03-21 20:58] LABS: Folate, Serum >22.3 ng/mL (>=5.9)
[2023-03-27 09:57] LABS: Platelet Count* 201 K/uL (140-440)
--- NOTE | 2023-03-27 13:28 | ONC.NURNOTE ---
Patient called with platelets at 201 and she is reluctant to start medication thinking that the platelets have been fluctuating so much she'd like another recheck next week on ThursdayApril 01 and then would like to talk with MD before starting her oral chemo! Workforce Development Specialist to speak with Dr. Wells regarding concerns
--- NOTE | 2023-04-03 12:41 | ONC.NURNOTE ---
Principal Web Developer took phone call from Padma, she stated that she has canceled her ECHO and does not want any treatment. Padma's chart was pulled and put in Dr. Wells's office, with a detailed note.
--- NOTE | 2023-10-27 14:03 | ONC.NURNOTE ---
Message left on VM- regarding routine surveillance follow up is she getting care at another site/
== END 2023-09-14 23:59 | disposition home or self-care (01) ==
LOC: CCIC 13:30
PROVIDERS: PCP Family Medicine; Referring Provider Family Medicine; Visit Provider Internal Medicine Hematology & Oncology
DX: C43.71 Malignant melanoma of right lower limb, including hip (principal); C43.9 Malignant melanoma of skin, unspecified
CPT/HCPCS: 36415; 80053; 80074; 82607; 82746; 83615; 85025; 85049; 86703; 99214; G0463

== ENCOUNTER 2023-04-20 08:00 | Outpatient (CLI) | payer OTHER, SELFPAY ==
--- OUTSIDE RECORDS SUMMARY | 2023-04-20 08:02 | XMS_ITS | Clinical Summary ---
Author Name Unknown Organization [facility] Address [address] [address] Care Team Providers Care Data Warehouse Developer Name Role Phone Unavailable Primary Care Provider Unavailabl e Source Comments You are receiving this document as you are listed as the primary care provider,follow-up provider, or the patient has been referred to you for consultation.This is in compliance with the Medicare and[facility] System[facility] EHR Incentive Program,which states Providers who transition their patient to another setting of careor provider of care or refers their patient to another provider of care shouldprovide summary care record for each transition of care or referral. [facility] Allergies No known active allergies Medications Medication Sig Dispensed Refills Start Date End Date Status fluorouracil (AKA EFUDEX) 5 % cream Apply twice daily x 6 weeks for back biopsy site. Wash hands after applying. Avoid sun. 40 g 0 11/30/2013 Active lidocaine-EPINEPHrine 1 %-[id number] injectionIndications:N eoplasm of uncertain behavior of skin Inject into the skin once. 22 mL 0 01/27/2014 Active imiquimod (ALDARA) 5 % cream Apply to chest, abdomen and leg spots nightly 5 nights per week for 2 months. 24 Each 2 11/02/2019 Active Social History Tobacco Use Types Packs/Day Years Used Date Smoking Tobacco: Never Assessed Sex and Gender Information Value Date Recorded Sex Assigned at Not on file Gender Identity Not on file Sexual Orientation Not on file Last Filed Vital Signs Vital Sign Reading Time Taken Comments Blood Pressure 137/82 01/27/2014 11:04 AM FISH BIN TENDER Pulse 57 01/27/2014 11:04 AM FISH BIN TENDER Temperature - - Respiratory Rate - - Oxygen Saturation - - Inhaled Oxygen Concentration - - Weight - - Height - - Body Mass Index - - Plan of Treatment Health Maintenance Due Date Last Done Comments Cervical Cancer Screening Due 1963 Colon Cancer Screening Plan Due 1963 Hep C Screening (Preventive Services) 1963 HepB (1) 1963 Mammogram 1963 HIV Screening (Preventive Services) 1979 Adult Preventive Visit 1981 Cholesterol 2008 Zoster/Shingles (1 of 2) 2013 COVID-19 Vaccine (2 - 2022-2 4 season) 2022 06/19/2020 Influenza (#1) 2022 DTaP/Tdap/Td (2 - Tdap) 11/13/2026 11/13/2016 HepA Aged Out No longer eligi ble based on patient's age to complete this topic Hib Aged Out No longer eligi ble based on patient's age to complete this topic IPV (Polio) Aged Out No longer eligi ble based on patient's age to complete this topic MCV4 Aged Out No longer eligi ble based on patient's age to complete this topic Pneumococcal Aged Out No longer eligi ble based on patient's age to complete this topic
--- NOTE | 2023-04-20 08:15 | CRLHL7_ITS ---
For Patients: As a result of the Cures Act, medical imaging exams and procedure reports are released immediately into your electronic medical record. You may view this report before your referring provider. If you have questions, please contact your health care provider. Indication: Surveillance OF RIGHT INGUINAL Lymph nodes, HX MELANOMA Technique: Grayscale and color Doppler ultrasound of the right inguinal canal performed. Comparison: CT PET 03/05/2023 Findings: Normal right inguinal lymph node is present measuring 1.1 x 0.4 x 0.5 cm. Normal central fatty hilum. No abnormal vascularity. No cortical thickening. Impression: No suspicious findings. Normal right inguinal lymph node. Dictated by Vinod Stewart MD @ 04/20/2023 9:18:33 AM (Electronically Signed)
== END 2023-04-20 08:01 | disposition home or self-care (01) ==
LOC: US 08:01
PROVIDERS: PCP Family Medicine; Visit Provider Internal Medicine
DX: C43.9 Malignant melanoma of skin, unspecified (principal); C77.9 Secondary and unspecified malignant neoplasm of lymph node, unspecified
CPT/HCPCS: 76882

== ENCOUNTER 2023-10-01 16:13 | Outpatient (CLI) | payer OTHER, SELFPAY ==
--- OUTSIDE RECORDS SUMMARY | 2023-10-01 16:16 | XMS_ITS | Encounter Summary ---
[facility] Address [address], [place] [address] Care Team Providers Care Public Works Supervisor Name Role Phone Unavailable Primary Care Provider Unavailabl e Reason for Visit * Reason Comments Establish Care [facility] Encounter Details Date Type Department Care Team (Late st Contact Info) Description 07/04/2023 Telephone [facility] [address] [facility] [place], [place] [address] Nurse, [id number] [place] [address] Establish Care ([facility]) Social History Tobacco Use Types Packs/Day Years Used Date Smoking Tobacco: Never Assessed Sex and Gender Information Value Date Recorded Sex Assigned at Not on file Gender Identity Not on file Sexual Orientation Not on file documented as of this encounter Nursing Notes * Kana Nugent - 07/10/2023 9:59 AM CDT Patient has an appointment with Dr. Valdes on 08/26 Future Appointments Date Time Provider Department Center 08/27/2023 3:20 [place] [id number] * Chante Garrido - 07/04/2023 9:56 PM CDT Images from the original note were not included. Received referral from [facility] for Hypothyroidism. Please call patient to schedule if appropriate, records received sent to HIM and put in Emma referral documented in this encounter Plan of Treatment Not on file documented as of this encounter Visit Diagnoses Not on filedocumented in this encounter
--- OUTSIDE RECORDS SUMMARY | 2023-10-01 16:16 | XMS_ITS | Encounter Summary ---
Author Organization [facility] Address [address] [place] [address] Care Team Providers Care Implementation Technician Name Role Phone Unavailable Primary Care Provider Unavailabl e Reason for Visit * Reason Comments CONSULT Encounter Details Date Type Department Care Team (Late st Contact Info) Description 08/27/2023 3:20 PM CDT Office Visit [facility] [address] [place] [address] Ashleigh Valdes MD [facility] [place] [address] Fatigue, unspecified type (Primary Dx) Social History Tobacco Use Types Packs/Day Years Used Date Smoking Tobacco: Never Smokeless Tobacco: Never Tobacco Cessation:Counseling Given: Not Answered Sex and Gender Information Value Date Recorded Sex Assigned at Not on file Gender Identity Not on file Sexual Orientation Not on file documented as of this encounter Last Filed Vital Signs Vital Sign Reading Time Taken Comments Blood Pressure 122/59 08/27/2023 3:15 PM CDT Pulse 63 08/27/2023 3:15 PM CDT Temperature - - Respiratory Rate - - Oxygen Saturation - - Inhaled Oxygen Concentration - - Weight 55.5 kg (122 lb 4.8 oz) 08/27/2023 3:15 P M CDT Height 166.4 cm (5' 5.5) 08/27/2023 3:15 PM CDT Body Mass Index 20.04 08/27/2023 3:15 PM CDT documented in this encounter Patient Instructions * Patient Instructions* Ashleigh Valdes MD - 08/27/2023 3:20 PM CDT Get morning fasting blood test after you have not taken biotin supplement for 3 days. I will contact you with results. documented in this encounter Progress Notes * Ashleigh Valdes MD - 08/27/2023 3:20 PM CDT [facility] Department of Endocrinology, Diabetes and Metabolism Clinic Note Name: Padma KINSEY Reason for visit: Concern for thyroid dysfunction HPI: Padma KINSEY is a 58 y.o. female who presents because of concern about thyroid dysfunction. She had melanoma, which was treated with surgery followed by nivolumab in September and October 2022. Outside records indicate that her labs showed thyroid dysfunction while taking nivolumab, but I do not have access to those lab results. Outside records indicate that a brain MRI showed normal pituitary in December 2022. Padma took compounded thyroid hormone for several years in the past, but has been off of it since November 2022. She believes her thyroid function tests were borderline before starting thyroid hormone replacement. Padma has been bothered by fatigue in the setting of poor sleep since March 2023. Her weight is relatively stable within 3-5 pounds, but she is frustrated because she would like to lose weight. She has a good appetite without nausea. She often feels thirsty and thinks she urinates frequently. She has not been experiencing light-headedness. Pertinent Family History: Sister and niece take thyroid medication, details unclear. Pertinent Social History: Padma will be going on a cruise to [facility] on 08/31/23. Physical Examination: Vitals: BP 122/59 (BP Location: Left Arm, BP Cuff Size: Regular) Pulse 63 Ht 5' 5.5 (1.664 m) Wt 122 lb 4.8 oz (55.5 kg) BMI 20.04 kg/m?? General: Well-appearing Eyes: Extraocular motions grossly intact; no proptosis or conjunctival injection ENT: Mucous membranes moist Thyroid: Normal to palpation without enlargement, palpable nodules, or tenderness Cardiovascular: Normal radial pulses with regular rate and rhythm Respiratory: Breathing comfortably Skin: Normal temperature, texture, and skin integrity Extremities: No peripheral edema Neurologic: Alert, oriented, answering questions appropriately, no tremor in the hands with arms outstretched Psychiatric: Affect euthymic; thought process linear and goal-directed Assessment: Fatigue History of nivolumab treatment Since nivolumab can cause thyroid dysfunction, adrenal insufficiency, and rarely insulin-dependant diabetes, I will check for all of these things. Padma currently takes a biotin supplement, so I explained that she should get labs after she has not taken that supplement for 3 days. Plan: Padma will get morning fasting labs (cortisol, ACTH, glucose, hemoglobin A1c, TSH, free T4) after she has not taken biotin for 3 days. I will contact her with these results. If they are normal, no follow-up in endocrinology clinic will be needed. If they show hypothyroidism, I will prescribe levothyroxine and recommend a follow-up appointment with a repeat TSH 2 months later. If they show evidence of adrenal insufficiency or diabetes, I will arrange an urgent follow-up appointment. Total time spent on this encounter was 31 minutes including review of medical records, visit with patient, reproduction order processor, documentation, and care coordination. Ashleigh Valdes MD Assistant Scientist [facility] documented in this encounter Plan of Treatment Not on file documented as of this encounter Results * Glucose - Fasting > 8 hrs Fasting (08/31/2023 7:16 AM CDT) [facility] Glucose 98 70 - 100 mg/dL 08/31/2023 9:27 AM CDT [facility] Comment:The given reference range is for the fasting state. Non-fasting reference range for glucose is 70 - 180 mg/dL. Hours Fasting 10.0 8 - 12 Hours 08/31/2023 9:27 AM T [facility] Blood Venipuncture / Unknown 08/31/2023 7:16 AM CDT 08/31/2023 7:56 AM CDT Ashleigh Valdes MD LAB_1 [facility] [address] [place] [address] * HgbA1c - Collect in Lab (08/31/2023 7:16 AM CDT) Pathologist [facility] Hemoglobin A1C 5.4 <=5.6 % 08/31/2023 4:59 PM CDT [facility] Estimated Average Glucose (Calc) 108 < 117 mg/dL 08/31/2023 4:59 PM CDT [facility] Comment:Estimated average gl ucose (eAG) converts A1c into glucose units (mg/dL) and estimates average glucose over the past approximately 3 months. The eAG reference interval (<117 mg/dL) corresponds to an A1c of <5.7%. Blood Venipuncture / Unknown 08/31/2023 7:16 AM CDT 08/31/2023 7:56 AM CDT Ashleigh Valdes MD LAB_1 Performing Organization Address [facility] de Phone Number [facility] [address] [address] * ACTH (08/31/2023 7:16 AM CDT) [facility] ACTH 19.4 7.2 - 63.3 pg/mL 09/01/2023 3:58 PM CDT [facility] Comment: INTERPRETIVE INFORMATION: Adrenocorticotropic Hormone Reference interval based on samples collected between 7 a.m. and 10 a.m. ??No reference intervals established for p.m. collections. ?? Pediatric reference values are the same as adults (Acta Paediatr Scand 1981;70:341-345). ??This assay measures intact ACTH 1-39; some types of synthetic ACTH and ACTH fragments are not detected by this assay. Performed By: [facility] [address] [place] [address] General Technician: Андрей Vasquez MD, PhD CLIA Number: [id number] Blood Venipuncture / Unknown 08/31/2023 7:16 AM CDT 08/31/2023 7:56 AM CDT Ashleigh Valdes MD LAB_1 [facility] [address] [place], [place] [address] [place] [address] * Cortisol (08/31/2023 7:16 AM CDT) Cortisol 12.0 2.9 - 19.4 mcg/dL 08/31/2023 2:54 PM CDT [facility] Blood Venipuncture / Unknown 08/31/2023 7:16 AM CDT 08/31/2023 7:56 AM CDT Narrative [facility] - 08/31/2023 2:54 PM CDT Expected values AM (before 10am): 3.7-19.4 mcg/dL PM (after 5pm): 2.9-17.3 mcg/dL Ashleigh Valdes MD LAB_1 Performing Organization Address [facility] Co de Phone Number [facility] [address] * Free T4 (08/31/2023 7:16 AM CDT) T4, Free 0.9 0.7 - 1.5 ng/dL 08/31/2023 2:54 PM CDT [facility] Blood Venipuncture / Unknown 08/31/2023 7:16 AM CDT 08/31/2023 7:56 AM CDT Ashleigh Valdes MD LAB_1 Performing Organization Address [facility] de Phone Number [facility] [address] * TSH, Sensitive (08/31/2023 7:16 AM CDT) TSH, Sensitive 1.25 0.30 - 4.50 uIU/mL 08/31/2023 2:54 PM CDT [facility] Blood Venipuncture / Unknown 08/31/2023 7:16 AM CDT 08/31/2023 7:56 AM CDT Ashleigh Valdes MD LAB_1 [facility] [address] documented in this encounter Visit Diagnoses Diagnosis Fatigue, unspecified type- Primary documented in this encounter
--- OUTSIDE RECORDS SUMMARY | 2023-10-01 16:16 | XMS_ITS | Encounter Summary ---
Author Organization [facility] Address [address] [place] [address] Care Team Providers Care Business Strategy Manager Name Role Phone Unavailable Primary Care Provider Unavailabl e Encounter Details Date Type Department Care Team (Late st Contact Info) Description 08/31/2023 7:10 AM CDT Lab Visit [facility] [address] [place] [address] Fatigue, unspecified type Social History Tobacco Use Types Packs/Day Years Used Date Smoking Tobacco: Never Smokeless Tobacco: Never Sex and Gender Information Value Date Recorded Sex Assigned at Not on file Gender Identity Not on file Sexual Orientation Not on file documented as of this encounter Plan of Treatment Not on file documented as of this encounter Procedures Procedure Name Priority Date/Time Associated Diagnosis Comments ACTH Routine 08/31/2023 7:16 AM CDT Fatigue, unspecified type TSH, SENSITIVE Routine 08/31/2023 7:16 AM CDT Fatigue, unspecified type FREE T4 Routine 08/31/2023 7:16 AM CDT Fatigue, unspecified type CORTISOL Routine 08/31/2023 7:16 AM CDT Fatigue, unspecified type HGB A1C Routine 08/31/2023 7:16 AM CDT Fatigue, unspecified type GLUCOSE Routine 08/31/2023 7:16 AM CDT Fatigue, unspecified type documented in this encounter Results * Glucose - Fasting > 8 hrs Fasting (08/31/2023 7:16 AM CDT) [facility] Glucose 98 70 - 100 mg/dL 08/31/2023 9:27 AM CDT [facility] Comment:The given reference range is for the fasting state. Non-fasting reference range for glucose is 70 - 180 mg/dL. Hours Fasting 10.0 8 - 12 Hours 08/31/2023 9:27 AM CDT [facility] Blood Venipuncture / Unknown 08/31/2023 7:16 AM CDT 08/31/2023 7:56 AM CDT Ashleigh Valdes MD LAB_1 Performing Organization Address [facility] Co de Phone Number [facility] [address] [place] [address] * HgbA1c - Collect in Lab (08/31/2023 7:16 AM CDT) [facility] Hemoglobin A1C 5.4 <=5.6 % 08/31/2023 4:59 PM CDT [facility] Estimated Average Glucose (Calc) 108 < 117 mg/dL 08/31/2023 4:59 PM CDT [facility] Comment:Estimated average gl ucose (eAG) converts A1c into glucose units (mg/dL) and estimates average glucose over the past approximately 3 months. The eAG reference interval (<117 mg/dL) corresponds to an A1c of <5.7%. Blood Venipuncture / Unknown 08/31/2023 7:16 AM CDT 08/31/2023 7:56 AM CDT Ashleigh Valdes MD LAB_1 Performing Organization Address City/[facility]/ZIP Co de Phone Number [facility] [address] * ACTH (08/31/2023 7:16 AM CDT) [facility] ACTH 19.4 7.2 - 63.3 pg/mL 09/01/2023 3:58 PM CDT [facility] Comment: INTERPRETIVE INFORMATION: Adrenocorticotropic Hormone Reference interval based on samples collected between 7 a.m. and 10 a.m. ??No reference intervals established for p.m. collections. ?? Pediatric reference values are the same as adults (Acta Paediatr Scand 1981;70:341-345). ??This assay measures intact ACTH 1-39; some types of synthetic ACTH and ACTH fragments are not detected by this assay. Performed By: [facility] [address] [place] [address] Food Products Sales Representative: Андрей Vasquez MD, PhD CLIA Number: [id number] Blood Venipuncture / Unknown 08/31/2023 7:16 AM CDT 08/31/2023 7:56 AM CDT Ashleigh Valdes MD LAB_1 Performing Organization Address [facility] Co de Phone Number [facility] [employer] [address] [address] * Cortisol (08/31/2023 7:16 AM CDT) Cortisol 12.0 2.9 - 19.4 mcg/dL 08/31/2023 2:54 PM CDT [facility] Blood Venipuncture / Unknown 08/31/2023 7:16 AM CDT 08/31/2023 7:56 AM CDT Narrative [facility] - 08/31/2023 2:54 PM CDT Expected values AM (before 10am): 3.7-19.4 mcg/dL PM (after 5pm): 2.9-17.3 mcg/dL Ashleigh Valdes MD LAB_1 [facility] [place] [address] * Free T4 (08/31/2023 7:16 AM CDT) T4, Free 0.9 0.7 - 1.5 ng/dL 08/31/2023 2:54 PM CDT [facility] Blood Venipuncture / Unknown 08/31/2023 7:16 AM CDT 08/31/2023 7:56 AM CDT Ashleigh Valdes MD LAB_1 Performing Organization Address [facility] Co de Phone Number [facility] [address] * TSH, Sensitive (08/31/2023 7:16 AM CDT) TSH, Sensitive 1.25 0.30 - 4.50 uIU/mL 08/31/2023 2:54 PM CDT [facility] Blood Venipuncture / Unknown 08/31/2023 7:16 AM CDT 08/31/2023 7:56 AM CDT Ashleigh Valdes MD LAB_1 Performing Organization Address [facility] Co de Phone Number [facility] [address] documented in this encounter Visit Diagnoses Diagnosis Fatigue, unspecified type documented in this encounter
--- OUTSIDE RECORDS SUMMARY | 2023-10-01 16:16 | XMS_ITS | Clinical Summary ---
Author Organization [employer] Address [address], [place] [address] Care Team Providers Care Airdox Fitter Name Role Phone Unavailable Primary Care Provider Unavailabl e Source Comments You are receiving this document as you are listed as the primary care provider,follow-up provider, or the patient has been referred to you for consultation.This is in compliance with the Medicare and[facility] EHR Incentive Program,which states Providers who transition their patient to another setting of careor provider of care or refers their patient to another provider of care shouldprovide summary care record for each transition of care or referral. Expect Labs Allergies Active Allergy Reactions Criticality Noted Date Comments Tramadol Dizziness 02/04/2023 09/17/22 - currently taking a small dose at bedtime without problems. Medications Medication Sig Dispensed Refills Start Date End Date Status MULTIPLE VITAMIN OR Activ e probiotic (AKA SUPER PROBIOTIC) Take 2 Capsules by mouth daily. Active cholecalciferol (VITAMIN D3) 25 MCG (1000 UT) tablet Take 1 Tablet (1,000 Units) by mouth daily. Active CYANOCOBALAMIN OR Active APPLE CIDER VINEGAR OR Active Active Problems No known active problems Encounters Date Type Department Care Team Description 08/31/2023 7:10 AM CDT Lab Visit [facility] [address] [place] [address] Fatigue, unspecified type 08/27/2023 3:20 PM CDT Office Visit [facility] [address] [place] [phone] Ashleigh Valdes MD Fatigue, unspecified type (Primary Dx) 07/04/2023 Telephone [facility] [address] Endocrinology [address] [place] [address] Nurse, [id number] End [facility] from Last 3 Months Social History Tobacco Use Types Packs/Day Years [...] Mass Index 20.04 08/27/2023 3:15 PM CDT Plan of Treatment Health Maintenance Due Date Last Done Comments Cervical Cancer Screening Due 1965 Colon Cancer Screening Plan Due 1965 Hep C Screening (Preventive Services) 1965 Mammogram 1965 HIV Screening (Preventive Services) 1979 Adult Preventive Visit 1981 Cholesterol 2008 Zoster/Shingles (1 of 2) 2013 COVID-19 Vaccine (3 - 2022-2 4 season) 2022 07/10/2020, 06/19/2020 Influenza (#1) 2023 02/03/2022 DTaP/Tdap/Td (2 - Tdap) 11/13/2026 11/13/2016 HepA Aged Out No longer eligi ble based on patient's age to complete this topic HepB Aged Out No longer eligi ble based [...] on patient's age to complete this topic Procedures Procedure Name Priority Date/Time Associated Diagnosis Comments GLUCOSE Routine 08/31/2023 7:16 AM CDT Fatigue, unspecified type HGB A1C Routine 08/31/2023 7:16 AM CDT Fatigue, unspecified type ACTH Routine 08/31/2023 7:16 AM CDT Fatigue, unspecified type CORTISOL Routine 08/31/2023 7:16 AM CDT Fatigue, unspecified type FREE T4 Routine 08/31/2023 7:16 AM CDT Fatigue, unspecified type TSH, SENSITIVE Routine 08/31/2023 7:16 AM CDT Fatigue, unspecified type from Last 3 Months Results * ACTH (08/31/2023 7:16 AM CDT) [facility] ACTH 19.4 7.2 - 63.3 pg/mL 09/01/2023 3:58 PM CDT [facility] Comment: INTERPRETIVE INFORMATION: Adrenocorticotropic Hormone Reference interval based on samples collected between 7 a.m. and 10 a.m. ??No reference intervals established for p.m. collections. ?? Pediatric reference values are the same as adults (Acta Paediatr Scand 1981;70:341-345). ??This assay measures intact ACTH 1-39; some types of synthetic ACTH and ACTH fragments are not detected by this assay. Performed By: [facility] [address] [place] [address] Proof Machine Operator: Андрей Vasquez MD, PhD CLIA Number: [id number] Blood Venipuncture / Unknown 08/31/2023 7:16 AM CDT 08/31/2023 7:56 AM CDT Ashleigh Valdes MD LAB_1 [facility] [address] [place], [place] [address] [place] [address] * TSH, Sensitive (08/31/2023 7:16 AM CDT) TSH, Sensitive 1.25 0.30 - 4.50 uIU/mL 08/31/2023 2:54 PM CDT [facility] Blood Venipuncture / Unknown 08/31/2023 7:16 AM CDT 08/31/2023 7:56 AM CDT Ashleigh Valdes MD LAB_1 Performing Organization Address [facility] de Phone Number [facility] [address] [place] [address] * Free T4 (08/31/2023 7:16 AM CDT) T4, Free 0.9 0.7 - 1.5 ng/dL 08/31/2023 2:54 PM CDT [facility] Blood Venipuncture / Unknown 08/31/2023 7:16 AM CDT 08/31/2023 7:56 AM CDT Ashleigh Valdes MD LAB_1 Performing Organization Address [facility] Phone Number [facility] [address] [place] [address] * Cortisol (08/31/2023 7:16 AM CDT) Cortisol 12.0 2.9 - 19.4 mcg/dL 08/31/2023 2:54 PM CDT [facility] Blood Venipuncture / Unknown 08/31/2023 7:16 AM CDT 08/31/2023 7:56 AM CDT Narrative [facility] - 08/31/2023 2:54 PM CDT Expected values AM (before 10am): 3.7-19.4 mcg/dL PM (after 5pm): 2.9-17.3 mcg/dL Ashleigh Valdes MD LAB_1 Performing Organization Address [facility] de Phone Number [facility] [address] [place] [address] * HgbA1c - Collect in Lab (08/31/2023 7:16 AM CDT) Hemoglobin A1C 5.4 <=5.6 % 08/31/2023 4:59 PM CDT [facility] Estimated Average Glucose (Calc) 108 < 117 mg/dL 08/31/2023 4:59 PM T [facility] Comment:Estimated average gl ucose (eAG) converts A1c into glucose units (mg/dL) and estimates average glucose over the past approximately 3 months. The eAG reference interval (<117 mg/dL) corresponds to an A1c of <5.7%. Blood Venipuncture / Unknown 08/31/2023 7:16 AM CDT 08/31/2023 7:56 AM CDT Ashleigh Valdes MD LAB_1 Performing Organization Address [facility]/ZIP Co de Phone Number [facility] [id number] [place] [address] * Glucose - Fasting > 8 hrs Fasting (08/31/2023 7:16 AM CDT) Glucose 98 70 - 100 mg/dL 08/31/2023 9:27 AM T [facility] Comment:The given reference range is for the fasting state. Non-fasting reference range for glucose is 70 - 180 mg/dL. Hours Fasting 10.0 8 - 12 Hours 08/31/2023 9:27 AM [facility] Blood Venipuncture / Unknown 08/31/2023 7:16 AM CDT 08/31/2023 7:56 AM CDT Ashleigh Valdes MD LAB_1 [facility] [address] [place] [address], [facility] from Last 3 Months
--- NOTE | 2023-10-01 16:30 | PE_ITS ---
[facility] [address] [facility] [address] Phone:?[phone] Fax:?[phone] Referring Physician Information: Felipe Rogers M.D. [address] [facility] [address] Phone:?[phone] Fax:?[phone] Patient:?Padma Hurtado D.O.B:?1965 Sex:?Female Phone:?[phone] [facility] MRN:?[id number] Exam Date:?10/01/2023 EXAM: PET WHOLE BODY CANCER RESTAGING CLINICAL INFORMATION: Melanoma, restaging. TECHNICAL INFORMATION: Helical acquisition of data was obtained from the vertex to the toes with reconstruction of 3.75 mm thick images at 3.[address] data was used for attenuation correction. PET scanning was performed through the same anatomic range 50 minutes following administration of 13.35 mCi of 18-FDG delivered intravenously. The patient's glucose at the time of the injection was 100 mg/dL. PET, CT and PET/CT fusion images are interpreted using a computer viewing workstation. PET, CT and PET/CT fusion images were archived and saved in the patient's permanent medical record. COMPARISON: PET-CTs from 03/05/2023 and 08/29/2022. INTERPRETATION: Head and Neck: There are no abnormal hypermetabolic foci within the head or neck. There is physiologic uptake in the intracranial soft tissues. Chest: There are no abnormal hypermetabolic foci within the chest. Background mediastinal blood pool uptake has a maximum SUV of 2.40. No lung nodules or masses detected on this free-breathing exam. No lymphadenopathy detected. Abdomen and Pelvis: There are no abnormal hypermetabolic foci within the abdomen or pelvis. Background hepatic parenchymal uptake has a maximum SUV of 3.16. There is physiologic excretion of radiotracer in the urine and bowel. Surgical clips noted in right groin. Skeleton, Musculature, and Integument: No abnormal hypermetabolic foci within the skeleton. No meño osteoblastic or osteolytic disease. CONCLUSION: No abnormal FDG uptake to indicate hypermetabolic malignancy. Electronically signed on 10/02/2023 2:08:00 PM by Bob Basilio M.D.
== END 2023-10-01 16:14 | disposition home or self-care (01) ==
PROVIDERS: PCP Family Medicine; Visit Provider Internal Medicine
DX: C43.72 Malignant melanoma of left lower limb, including hip (principal); C77.9 Secondary and unspecified malignant neoplasm of lymph node, unspecified
CPT/HCPCS: 78816; A9552

== ENCOUNTER 2024-07-27 15:41 | Outpatient (CLI) | payer OTHER, SELFPAY ==
[2024-08-03 05:27] LABS: HPV Source Cervical; HPV, High Risk by TMA Not Detected
== END 2024-07-27 15:42 | disposition home or self-care (01) ==
PROVIDERS: PCP Family Medicine; Visit Provider Obstetrics & Gynecology
DX: Z12.4 Encounter for screening for malignant neoplasm of cervix (principal); Z11.51 Encounter for screening for human papillomavirus (HPV)
CPT/HCPCS: 87624; 87625; 88141; 88142

== ENCOUNTER 2024-08-17 14:41 | Outpatient (CLI) | payer OTHER, SELFPAY ==
--- NOTE | 2024-08-17 15:00 | CRLHL7_ITS ---
For Patients: As a result of the Century Cures Act, medical imaging exams and procedure reports are released immediately into your electronic medical record. You may view this report before your referring provider. If you have questions, please contact your health care provider. DXA BONE MINERAL DENSITY STUDY Current height (in): 66.5. Weight (lb): 120. Menopause age: 48. Ethnicity: White. 1. Have you had a previous hip or vertebral fracture? No. 2. Have you had any fractures during your adult life which did not result from significant trauma (e.g., auto accident)? No. 3. Did either of your parents have a hip fracture? No. 4. Do you smoke? No. 5. Have you ever taken Glucocorticoids? No. 6. Do you have rheumatoid arthritis? No. 7. Do you have secondary osteoporosis? No. 8. Do you drink 3 or more alcoholic drinks per day? No. 9. Are you being treated for osteoporosis? Yes. 10. Have you ever taken any of the following medications: Actonel, Evista, Fosamax, Miacalcin, Reclast, Boniva, Forteo, HRT (i.e. estrogen/hormone therapy), Protelos, Prolia, Vitamin D, Calcium, other ??? please specify. ANSWER: Yes, Vitamin D. 11. Do you have any of the following medical conditions: Anorexia or bulimia, asthma or emphysema, end stage renal disease, hyperparathyroidism, any seizure disorders, cancer, inflammatory bowel diseases, hysterectomy, other ??? please specify. ANSWER: No. 12. What was your maximum height (inches)? 66.5. 13. Do you perform weight bearing exercise regularly? Yes. 14. Do you regularly consume dairy products? n/a 15. Do you drink caffeinated beverages? Yes. 16. At what age did your period start? 9. 17. Are you premenopausal? No. 18. How many full term pregnancies have you had? 1. 19. Have you ever missed your period for more than 6 months in a row (not including or menopause)? No. TECHNIQUE: Bone mineral density study was performed using the [email or web address]. FINDINGS: The results of the study expressed as bone mineral density (BMD) are as follows: Lumbar spine L1to L4: BMD: 0.757 g/cm2. T-score: -2.6. Z-score: -1.1. Neck Left: BMD: 0.619 g/cm2. T-score: -2.1. Z-score: -0.7. Right: BMD: 0.573 g/cm2. T-score: -2.5. Z-score: -1.1. Total Left: BMD: 0.750 g/cm2. T-score: -1.6. Z-score: -0.6. Right: BMD: 0.694 g/cm2. T-score: -2.0. Z-score: -1.0. IMPRESSION: Osteoporosis. Vinod Stewart M.D. Diagnostic Radiologist [email or web address] DW/Dictated by: Vinod Stewart MD @ 08/22/2024 8:52:00 AM (Electronically Signed)
== END 2024-08-17 14:42 | disposition home or self-care (01) ==
LOC: RAD 14:42
PROVIDERS: PCP Family Medicine; Visit Provider Obstetrics & Gynecology
DX: Z13.820 Encounter for screening for osteoporosis (principal); M81.0 Age-related osteoporosis without current pathological fracture
CPT/HCPCS: 77080

== ENCOUNTER 2024-09-21 14:54 | Outpatient (CLI) | payer OTHER, SELFPAY | END 2024-09-21 14:55 | disposition home or self-care (01) | PROVIDERS: PCP Family Medicine; Visit Provider Physician Assistant Medical | DX: M81.0 Age-related osteoporosis without current pathological fracture (principal); R94.6 Abnormal results of thyroid function studies | CPT/HCPCS: 82024; 82306; 82310; 83970; 84100; 84439; 84443 ==

== ENCOUNTER 2024-10-17 12:46 | Outpatient (CLI) | payer OTHER, SELFPAY ==
--- NOTE | 2024-10-17 13:00 | CRLHL7_ITS ---
For Patients: As a result of the Century Cures Act, medical imaging exams and procedure reports are released immediately into your electronic medical record. You may view this report before your referring provider. If you have questions, please contact your health care provider. INDICATION: low TSH COMPARISON: none TECHNIQUE: Ngo scale and color Doppler images were acquired of the thyroid gland. FINDINGS: Solid and cystic nodule left thyroid lobe measures 7 x 4 x 6 millimeters, TR 3. Solid and cystic nodule right thyroid lobe measures 1.47 x 1.2 x 0.9 cm, TR 3. Solid and cystic nodule right thyroid lobe measures 9 x 5 x 8 millimeters. Isthmus measures 1.4 millimeters. The right lobe measures 5.7 x 1.5 x 1.6 cm and the left lobe measures 5.1 x 1.3 x 1.4 cm in size. The color Doppler images demonstrate normal vascularity. There is no evidence of cervical lymphadenopathy or parathyroid mass. IMPRESSION: Bilateral thyroid nodules measuring up to 1.47 cm. One year follow-up could be considered. Dictated by Vinod Stewart MD @ 10/18/2024 7:07:04 AM (Electronically Signed)
== END 2024-10-17 12:47 | disposition home or self-care (01) ==
LOC: US 12:47
PROVIDERS: PCP Physician Assistant Medical; Visit Provider Physician Assistant Medical
DX: E04.1 Nontoxic single thyroid nodule (principal); R79.89 Other specified abnormal findings of blood chemistry
CPT/HCPCS: 76536

== ENCOUNTER 2024-10-20 14:28 | Outpatient (CLI) | payer OTHER, SELFPAY ==
--- NOTE | 2024-10-20 14:40 | CRLHL7_ITS ---
For Patients: As a result of the Century Cures Act, medical imaging exams and procedure reports are released immediately into your electronic medical record. You may view this report before your referring provider. If you have questions, please contact your health care provider. INDICATION: BILATERAL SCREENING MAMMOGRAM W/IMPLANTS, ASYMPTOMATIC 59 Y/O FEMALE COMPARISON: 08/26/2022, 07/15/2021, 07/08/2021 TECHNIQUE: Digital mammogram in CC and MLO projections including computer-aided detection (CAD) and tomosynthesis. BREAST COMPOSITION: There are scattered areas of fibroglandular density. FINDINGS: No suspicious findings. ASSESSMENT: BI-RADS 2 Benign RECOMMENDATION: Annual screening mammogram. A lay language report of this examination will be provided to the patient. Dictated by: Vinod Stewart MD @ 10/21/2024 09:58:12 (Electronically Signed)
== END 2024-10-20 14:29 | disposition home or self-care (01) ==
LOC: MAMMO 14:28
PROVIDERS: PCP Physician Assistant Medical; Visit Provider Family Medicine
DX: Z12.31 Encounter for screening mammogram for malignant neoplasm of breast (principal); Z98.82 Breast implant status
CPT/HCPCS: 77063; 77067

== ENCOUNTER 2024-10-27 10:59 | Outpatient (CLI) | payer OTHER, SELFPAY | END 2024-10-27 11:00 | disposition home or self-care (01) | PROVIDERS: PCP Physician Assistant Medical; Visit Provider Family Medicine | DX: Z01.818 Encounter for other preprocedural examination (principal) | CPT/HCPCS: 80048; 85025 ==

== ENCOUNTER 2025-01-24 13:50 | Outpatient (CLI) | payer OTHER, SELFPAY ==
--- NOTE | 2025-01-24 14:00 | CRLHL7_ITS ---
For Patients: As a result of the 21st Century Cures Act, medical imaging exams and procedure reports are released immediately into your electronic medical record. You may view this report before your referring provider. If you have questions, please contact your health care provider. INDICATION: DECREASED HEARING TECHNIQUE: CT of the temporal bones without contrast. Coronal and axial small field of view reconstructions of both temporal bones are included. COMPARISON: 03/20/2023 FINDINGS: RIGHT temporal bone: The external auditory canal is widely patent. No EAC stenosis or obstruction. The tympanic membrane is not thickened. The right middle ear is clear. No material is present within the sinus tympani. The ossicles are normal in appearance and location with no erosions or dislocation. The otic capsule is normal in appearance. No sclerosis within the labyrinthine canal. No fistula between the labyrinth and the middle ear. The vestibule and semicircular canals are normal in morphology with no evidence of semicircular canal dehiscence. Normal cochlear morphology with appropriate number of turns. Vestibular aqueduct is normal in size. Facial nerve canal is intact and normal in course/caliber. Petrous apex is normal. Mastoid air cells are clear. The carotid canal and jugular foramen are normal. LEFT temporal bone: The external auditory canal is widely patent. No EAC stenosis or obstruction. The tympanic membrane is not thickened. The left middle ear is clear. No material is present within the sinus tympani. The ossicles are normal in appearance and location with no erosions or dislocation. The otic capsule is normal in appearance. No sclerosis within the labyrinthine canal. No fistula between the labyrinth and the middle ear. The vestibule and semicircular canals are normal in morphology with no evidence of semicircular canal dehiscence. Normal cochlear morphology with appropriate number of turns. Vestibular aqueduct is normal in size. Facial nerve canal is intact and normal in course/caliber. Petrous apex is normal. Mastoid air cells are clear. The carotid canal and jugular foramen are normal. OTHER: No fracture or significant degenerative change, lytic or blastic process is demonstrated in the skull base or temporomandibular joints. The imaged intracranial structures are normal in appearance. Orbits are normal. Imaged soft tissue structures are normal in appearance. Improved opacification of the right frontal sinus, ethmoid air cells, and right sphenoid sinus. Mild residual mucosal thickening in the left sphenoid sinus, left posterior ethmoid air cells, and bilateral maxillary sinuses. Leftward deviation of the nasal septum with septal spur that contacts the inferior turbinate. IMPRESSION: 1. Unremarkable CT of the temporal bones. 2. Mild paranasal sinus disease. improved Please note that all CT scans at this facility use dose modulation, iterative reconstruction, and/or weight-based dosing when appropriate to reduce radiation dose to as low as reasonably achievable. Dictated by Vinod Vasquez MD @ 01/26/2025 11:52:22 AM (Electronically Signed)
== END 2025-01-24 13:51 | disposition home or self-care (01) ==
LOC: CT 13:51
PROVIDERS: PCP Physician Assistant Medical; Visit Provider Physician Assistant
DX: H91.90 Unspecified hearing loss, unspecified ear (principal)
CPT/HCPCS: 70480